=== PATIENT | male | born 1965 | race Caucasian/White ===

== ENCOUNTER 2018-02-14 18:20 | Emergency (ER) | payer OTHER ==
--- NOTE | 2018-02-14 18:59 | ER Document Report ---
ED Medical Screen (RME) - General Chief Complaint: Eye Injury Stated Complaint: LEFT EYE PAIN Time Seen by Provider: 02/14/18 18:53 Mode of Arrival: Ambulatory Information source: Patient Notes: 52-year-old male with hypertension, reflux presents with complaint of left eye pain, blurred vision that started 4 days prior to arrival. Patient was sent over from urgent care. 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 Since then he has had progressively worsening pain. He does not wear contacts or glasses. I have greeted and performed a rapid initial assessment of this patient. A comprehensive ED assessment and evaluation of the patient, analysis of test results and completion of medical decision making process we will be contacted by additional ED providers. PHYSICAL EXAMINATION: Vital signs reviewed-hypertensive GENERAL: Well-appearing, well-nourished and in no acute distress. LUNGS: No respiratory distress Musculoskeletal: Normal range of motion NEUROLOGICAL: Normal speech, normal gait. PSYCH: Normal mood, normal affect. SKIN: Warm, Dry, normal turgor, no rashes or lesions noted. TRAVEL OUTSIDE OF THE [place] IN LAST 30 DAYS: No - HPI Onset: Other Onset/Duration: Persistent, Worse Quality of pain: Burning, Throbbing Severity: Moderate Associated Symptoms: None Exacerbated by: Denies Relieved by: Denies Similar symptoms previously: No Recently seen / treated by doctor: No - Related Data Smoking: Cigarettes Frequency of alcohol use: Occasional Drug Abuse: None Physical Exam - Vital signs Vitals: Temp Pulse Resp BP Pulse Ox 99.4 F 93 20 160/100 H 99 02/14/18 18:29 02/14/18 18:29 02/14/18 18:29 02/14/18 18:29 02/14/18 18:29 Course - Vital Signs Vital signs: Temp Pulse Resp BP Pulse Ox 99.4 F 93 20 160/100 H 99 02/14/18 18:29 02/14/18 18:29 02/14/18 18:29 02/14/18 18:29 02/14/18 18:29
[2018-02-14] MEDS ORDERED: TETRACAINE HCL 0.5% OPH SOLN 4 ML OS ONE (19:00)
[2018-02-14] MEDS ORDERED: ONDANSETRON 4 MG TAB.RAPDIS PO ONE (19:30)
[2018-02-14] MEDS ORDERED: ACETAMINOPHEN 325 MG TABLET PO ONE (19:31)
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
[2018-02-14 19:57] VITALS: BP 136/85
== END 2018-02-14 20:07 | disposition home or self-care (01) ==
LOC: ER 18:20
DX: H10.32 Unspecified acute conjunctivitis, left eye (principal); F17.200 Nicotine dependence, unspecified, uncomplicated; T15.92XA Foreign body on external eye, part unspecified, left eye, initial encounter; X58.XXXA Exposure to other specified factors, initial encounter; Y93.H3 Activity, building and construction; Y92.9 Unspecified place or not applicable; Y99.0 Civilian activity done for income or pay; I10 Essential (primary) hypertension
CPT/HCPCS: 99283; S0119; J3490